=== PATIENT | female | born 1960 | race Caucasian/White ===

== ENCOUNTER 2023-01-17 08:00 | Outpatient (CLI) | payer OTHER | END 2023-01-17 23:59 | disposition home or self-care (01) | LOC: LAB.S 08:00 | PROVIDERS: ATTEND Physician Assistant | DX: R10.9 Unspecified abdominal pain (principal); R30.0 Dysuria | CPT/HCPCS: 87086 ==

== ENCOUNTER 2023-11-03 08:00 | Outpatient (CLI) | payer OTHER ==
--- NOTE | 2023-11-04 07:12 | XRAY Report ---
PROCEDURE: Lumbar Spine 2-3V INDICATIONS: LOWER BACK MUSCLE STRAIN TECHNIQUE: 3 views of the lumbar spine were acquired. COMPARISON: None. FINDINGS: Bones: Vertebral body heights are well-maintained. No traumatic subluxation. Mild overall degenerativ e changes. Soft tissues: No suspicious calcifications. IMPRESSION: Mild overall degenerative changes. No acute vertebral body height loss or traumatic subluxation. If t here is high concern for further derangement, consider MRI evaluation. Reviewed by: Germain Hudson MD on 11/04/2023 7:11 AM PDT Approved by: Germain Hudson MD on 11/04/2023 7:11 AM PDT Station ID: [id number]
== END 2023-11-03 23:59 | disposition home or self-care (01) ==
LOC: DI.S 08:00
PROVIDERS: ATTEND Emergency Medicine
DX: M47.816 Spondylosis without myelopathy or radiculopathy, lumbar region (principal)